=== PATIENT | male | born 1995 | race African-American/Black ===

== ENCOUNTER 2022-01-01 00:12 | Emergency (ER) | payer MEDICAID ==
[~2022-01-01] VITALS: Ht 175.3 cm; Wt 70.8 kg
[2022-01-01 00:30] VITALS: BP 133/69
[2022-01-01] MEDS ORDERED: IBUPROFEN 600MG TABLET PO NR (02:52)
[2022-01-01] MEDS ORDERED: CYCL5TAB PO (02:57)
[2022-01-01] MEDS ORDERED: IBUP-2029 PO (02:57)
== END 2022-01-01 03:15 | disposition home or self-care (01) ==
LOC: ER 00:12
DX: S16.1XXA Strain of muscle, fascia and tendon at neck level, initial encounter (principal); V49.49XA Driver injured in collision with other motor vehicles in traffic accident, initial encounter; Y93.89 Activity, other specified; Y92.89 Other specified places as the place of occurrence of the external cause; Y99.8 Other external cause status; R07.89 Other chest pain; M54.9 Dorsalgia, unspecified
CPT/HCPCS: 71045; 73000; 99284